=== PATIENT | male | born 1985 | race African-American/Black ===

== ENCOUNTER 2023-04-27 18:31 | Emergency (ER) | payer BC ==
[~2023-04-27] VITALS: Ht 188 cm; Wt 91.0 kg
[2023-04-27 18:36] VITALS: TEMP 98.6; O2SAT 99
[2023-04-27] MEDS ORDERED: KETOROLAC 30MG/ML VIAL IM ONE (19:30)
[2023-04-27 21:08] VITALS: BP 145/93; PULSE 75; RESP 16
[2023-04-27] MEDS ORDERED: KETOROLAC 30MG/ML VIAL IM NR (21:08)
[2023-04-27] MEDS ORDERED: BENZ1LOZ73 MT (21:58)
== END 2023-04-27 22:50 | disposition home or self-care (01) ==
LOC: ER 18:31
DX: B34.9 Viral infection, unspecified (principal)
CPT/HCPCS: 99283; 87430; 87070; 96372; J1885